=== PATIENT | female | born 1985 | race African-American/Black ===

== ENCOUNTER 2017-06-10 20:42 | Emergency (ER) | payer OTHER ==
[~2017-06-10] VITALS: Ht 162.6 cm; Wt 91.6 kg
[~2017-06-10 20:42] MED LIST: ACYCLOVIR400 MG PO; AMOXICILLIN500 MG PO; ENDOCET 5-3251 EACH PO; IBUPROFEN800 MG PO; NOHOMEMEDS; PRENATAL TABLE1 EAC3 PO; VICODIN 5-3001 EACH PO
[2017-06-10] MEDS ORDERED: CLEOCIN300 MG PO (21:15)
[2017-06-10 21:57] VITALS: BP 140/92
== END 2017-06-10 21:57 | disposition home or self-care (01) ==
LOC: EME 20:42
DX: K08.89 Other specified disorders of teeth and supporting structures (principal)
CPT/HCPCS: 99281; 99284